=== PATIENT | female | born 1985 | race Caucasian/White ===

== ENCOUNTER 2017-05-31 11:39 | Emergency (ER) | payer MEDICAID | END 2017-05-31 16:58 | disposition home or self-care (01) | LOC: E/R 11:39 | DX: J20.9 Acute bronchitis, unspecified (principal) | CPT/HCPCS: 99284; Z7502 ==

== ENCOUNTER 2017-06-03 15:43 | Emergency (ER) | payer MEDICAID | END 2017-06-03 20:50 | disposition home or self-care (01) | LOC: FTE 15:43 | DX: J06.9 Acute upper respiratory infection, unspecified (principal); J45.909 Unspecified asthma, uncomplicated; F17.210 Nicotine dependence, cigarettes, uncomplicated | CPT/HCPCS: 71045; 99284-25 ==